=== PATIENT | male | born 1950 | race Caucasian/White ===

== ENCOUNTER 2017-05-05 10:24 | Inpatient (IN) | payer OTHER ==
[~2017-05-05] VITALS: Ht 177.8 cm; Wt 103.8 kg
[2017-05-05 11:27] LABS: BLOOD UREA NITROGEN 33 mg/dL (7-18)
[2017-05-05 11:33] LABS: ASPARTATE AMINO TRANSFERASE 61 U/L (15-37)
[2017-05-05 11:36] LABS: IS PT STATUS REG ER OR PRE ER? YES
[2017-05-05] MEDS ORDERED: ASPIRIN 81 MG TABLET CHEW ONE (11:38)
[2017-05-05] MEDS ORDERED: HEPARIN 5,000 UNITS/ML, 1ML IV ONE (12:00)
[2017-05-05] MEDS ORDERED: HEPARIN 25,000 UNITS/500ML PMX 500 ML ONE (12:10)
[2017-05-05] MEDS ORDERED: HEPARIN 5,000 UNITS/ML, 1ML ONE (12:10)
[2017-05-05] MEDS: HEPARIN 25,000 UNITS/500ML PMX 500 ML IV PRN (12:25)
[2017-05-05] MEDS ORDERED: ASPIRIN 325 MG TABLET EC PO ONE (12:30)
[2017-05-05] MEDS: METOPROLOL TARTRATE 25 MG TABLET PO SCH ×2 (12:30→16:23)
[2017-05-05] MEDS ORDERED: POTASSIUM CHLORIDE 20 MEQ TAB.ER.PRT PO ONE (12:30)
[2017-05-05] MEDS ORDERED: AMLO10TA2 PO (12:35)
[2017-05-05] MEDS ORDERED: LOSA1TAB17 PO (12:35)
[2017-05-05] MEDS ORDERED: morphine SULFATE 10 MG/ML, 1ML IVPush PRN (13:00)
[2017-05-05] MEDS ORDERED: TEMPLATE NON-FORMULARY MED. (Amlodipine Besylate (Amlodipine Besylate**) 10 MG) PO SCH (13:00)
[2017-05-05] MEDS ORDERED: ZOLPIDEM 5MG TABLET PO PRN (13:00)
[2017-05-05] MEDS ORDERED: LOSARTAN 50MG TABLET PO SCH (13:00)
[2017-05-05] MEDS ORDERED: NITROGLYCERIN 0.4 MG BOTTLE (25 TABS) SL PRN (13:00)
[2017-05-05] MEDS ORDERED: ONDANSETRON 2MG/ML, 2ML IVPush PRN (13:00)
[2017-05-05] MEDS ORDERED: ACETAMINOPHEN 325 MG TABLET PO PRN (13:00)
[2017-05-05] MEDS ORDERED: TEMPLATE NON-FORMULARY MED. (Losartan/Hydrochlorothiazide** (Losartan-Hctz 100-25 Mg Tab PO SCH (13:00)
[2017-05-05] MEDS ORDERED: METOPROLOL TARTRATE 50 MG TABLET ONE (16:21)
[2017-05-05 17:00] VITALS: BP 117/74
[2017-05-05 17:52] LABS: IS PT STATUS REG ER OR PRE ER? NO
[2017-05-05] MEDS: HEPARIN 5,000 UNITS/ML, 1ML IV PRN ×2 (19:47→19:49)
[2017-05-05 19:56] VITALS: BP 115/76
[2017-05-05] MEDS: SODIUM CHLORIDE FLUSH 10ML SYR IVF SCH (20:47)
[2017-05-05] MEDS ORDERED: ATORVASTATIN 80 MG TABLET PO SCH (21:00)
[2017-05-05 23:42] LABS: IS PT STATUS REG ER OR PRE ER? NO
[2017-05-06 01:42] VITALS: BP 107/70
[2017-05-06] MEDS: HEPARIN 5,000 UNITS/ML, 1ML IV PRN (03:11)
[2017-05-06] MEDS: METOPROLOL TARTRATE 25 MG TABLET PO SCH ×2 (06:34→18:24)
[2017-05-06] MEDS: ASPIRIN 81 MG TABLET EC PO SCH (06:34)
[2017-05-06] MEDS ORDERED: SODIUM CHLORIDE 0.9% 1,000 ML IV SCH (07:00)
[2017-05-06] MEDS: SODIUM CHLORIDE FLUSH 10ML SYR IVF SCH ×2 (07:00→19:44)
[2017-05-06 07:22] VITALS: BP 107/68
[2017-05-06] MEDS: HEPARIN 25,000 UNITS/500ML PMX 500 ML IV PRN (07:26)
[2017-05-06] MEDS ORDERED: TICAGRELOR 90 MG TABLET ONE (10:46)
[2017-05-06] MEDS ORDERED: NITROGLYCERIN 5 MG/ML, 10ML ONE (10:46)
[2017-05-06] MEDS ORDERED: LIDOCAINE 2%, 20ML ONE (10:46)
[2017-05-06] MEDS ORDERED: BIVALIRUDIN 250 MG ONE (10:46)
[2017-05-06] MEDS ORDERED: MIDAZOLAM 1 MG/ML, 5ML ONE (10:46)
[2017-05-06] MEDS ORDERED: FENTANYL PF 100 MCG/2ML ONE (10:46)
[2017-05-06] MEDS ORDERED: CLOPIDOGREL 300 MG TABLET PO ONE (12:00)
[2017-05-06] MEDS: SODIUM CHLORIDE 0.9% 500 ML IV SCH (12:00)
[2017-05-06 13:23] VITALS: BP 116/73
[2017-05-06] MEDS: ATORVASTATIN 40 MG TABLET PO SCH (19:44)
[2017-05-06 19:49] VITALS: BP 113/74
[2017-05-07 02:01] VITALS: BP 110/70
[2017-05-07 04:25] VITALS: BP 99/63
[2017-05-07] MEDS: METOPROLOL TARTRATE 25 MG TABLET PO SCH (04:46)
[2017-05-07 05:54] LABS: BLOOD UREA NITROGEN 16 mg/dL (7-18); TOTAL IRON BINDING CAPACITY 236 mcg/dL (250-450)
[2017-05-07] MEDS: ASPIRIN 81 MG TABLET EC PO SCH (06:25)
[2017-05-07 07:00] VITALS: BP 119/73
[2017-05-07] MEDS: LOSARTAN 50MG TABLET PO SCH (09:16)
[2017-05-07] MEDS: SODIUM CHLORIDE FLUSH 10ML SYR IVF SCH ×2 (09:17→20:16)
[2017-05-07] MEDS: CLOPIDOGREL 75 MG TABLET PO SCH (10:51)
[2017-05-07 13:05] VITALS: BP 114/77
[2017-05-07 20:11] VITALS: BP 142/79
[2017-05-07] MEDS: ATORVASTATIN 40 MG TABLET PO SCH (20:16)
[2017-05-08 04:32] VITALS: BP 124/76
[2017-05-08] MEDS: ASPIRIN 81 MG TABLET EC PO SCH (04:34)
[2017-05-08 06:59] VITALS: BP 122/77
[2017-05-08] MEDS: CLOPIDOGREL 75 MG TABLET PO SCH (08:37)
[2017-05-08] MEDS: LOSARTAN 50MG TABLET PO SCH (08:37)
[2017-05-08] MEDS: SODIUM CHLORIDE FLUSH 10ML SYR IVF SCH (08:38)
[2017-05-08] MEDS ORDERED: ATORVASTATIN 40 MG TABLET PO SCH ×2 (09:29→09:30)
[2017-05-08] MEDS ORDERED: ATOR40TA78 PO (09:30)
[2017-05-08] MEDS ORDERED: LOSA50TA2 PO (09:30)
[2017-05-08] MEDS ORDERED: ASPI-621 PO (09:30)
[2017-05-08] MEDS ORDERED: NITR0.4T SL (09:30)
[2017-05-08] MEDS ORDERED: CLOP75TA PO (09:30)
== END 2017-05-08 12:00 | disposition home or self-care (01) | DRG 280 ==
LOC: ED 11:40 → EDIP 11:58 → SUATTDRO 12:18 → 5SO 13:36 → DCLOUNGE 05-08 11:40
PROC: 4A023N7 Measurement of Cardiac Sampling and Pressure, Left Heart, Percutaneous Approach (ICD-10-PCS; principal; 2017-05-06)
PROC: B2151ZZ Fluoroscopy of Left Heart using Low Osmolar Contrast (ICD-10-PCS; 2017-05-06)
PROC: B2111ZZ Fluoroscopy of Multiple Coronary Arteries using Low Osmolar Contrast (ICD-10-PCS; 2017-05-06)
DX: I21.4 Non-ST elevation (NSTEMI) myocardial infarction (principal); I50.41 Acute combined systolic (congestive) and diastolic (congestive) heart failure; I42.9 Cardiomyopathy, unspecified; I11.0 Hypertensive heart disease with heart failure; D64.9 Anemia, unspecified; D50.9 Iron deficiency anemia, unspecified; D69.6 Thrombocytopenia, unspecified; E78.5 Hyperlipidemia, unspecified; E87.6 Hypokalemia; Z79.82 Long term (current) use of aspirin; Z79.02 Long term (current) use of antithrombotics/antiplatelets
CPT/HCPCS: 36415; 71010; 80048; 80053; 80061; 82728; 83540; 83550; 83880; 84484; 85025; 85520; 93005; 93458; 96374; 99156; C1769; C1894; C8929; J0583; J1644; J2250; J2405; J3010; J3490; J7030; J7040; Q9967

== ENCOUNTER 2017-06-12 09:19 | Observation (INO) | payer OTHER ==
[~2017-06-12] VITALS: Ht 177.8 cm; Wt 105.4 kg
[~2017-06-12 09:19] MED LIST: AMLO10TA2 PO; ASPI-621 PO; ATOR40TA78 PO; CLOP75TA PO; LOSA1TAB17 PO; LOSA50TA2 PO; NITR0.4T SL
[2017-06-12] MEDS ORDERED: CEFAZOLIN PMX 1GM/50ML 50 ML IVPB ONE (10:00)
[2017-06-12 10:01] VITALS: BP 143/88
[2017-06-12] MEDS ORDERED: LOSA50TA6 PO (10:29)
[2017-06-12] MEDS ORDERED: ASPI-496 PO (10:29)
[2017-06-12] MEDS ORDERED: LOSA1TAB16 PO (10:29)
[2017-06-12] MEDS ORDERED: NITR0.3T5 SL (10:29)
[2017-06-12] MEDS ORDERED: CLOP75TA PO (10:29)
[2017-06-12] MEDS ORDERED: MIDAZOLAM 1 MG/ML, 5ML ONE (11:20)
[2017-06-12] MEDS ORDERED: FENTANYL PF 100 MCG/2ML ONE (11:20)
[2017-06-12] MEDS ORDERED: PROPOFOL 10 MG/ML, 20ML ONE (11:22)
[2017-06-12] MEDS ORDERED: ONDANSETRON 2MG/ML, 2ML ONE (11:22)
[2017-06-12] MEDS ORDERED: DEXAMETHASONE 4 MG/ML, 1ML ONE (11:22)
[2017-06-12] MEDS ORDERED: CEFAZOLIN 1,000 MG ONE ×2 (11:22→11:36)
[2017-06-12] MEDS ORDERED: LIDOCAINE 2%, 20ML ONE (11:36)
[2017-06-12] MEDS ORDERED: PROMETHAZINE 25 MG/ML, 1ML IV PRN (12:30)
[2017-06-12] MEDS ORDERED: ONDANSETRON 2MG/ML, 2ML IVPush PRN (12:30)
[2017-06-12] MEDS ORDERED: MIDAZOLAM 1 MG/ML, 2ML IV PRN (12:30)
[2017-06-12] MEDS ORDERED: HYDROmorphone 1 MG/ML, 1ML IV PRN (12:30)
[2017-06-12] MEDS ORDERED: ZOLPIDEM 5MG TABLET PO PRN (12:30)
[2017-06-12] MEDS ORDERED: MEPERIDINE/PF 25MG/0.5ML IVPush PRN (12:30)
[2017-06-12] MEDS ORDERED: FENTANYL PF 100 MCG/2ML IV PRN (12:30)
[2017-06-12] MEDS ORDERED: HYDROcodone/APAP 5/325 TABLET PO PRN (12:30)
[2017-06-12] MEDS ORDERED: ACETAMINOPHEN 325 MG TABLET PO PRN (12:30)
[2017-06-12] MEDS ORDERED: LABETALOL 5MG/ML, 20ML IV PRN (12:30)
[2017-06-12] MEDS ORDERED: OXYcodone 5 MG/5 ML ORAL.SOL UDC PO PRN (12:30)
[2017-06-12] MEDS ORDERED: hydrALAzine 20 MG/ML, 1ML IV PRN (12:30)
[2017-06-12] MEDS ORDERED: ALBUTEROL SULFATE 2.5 MG/3 ML NPPB PRN (12:30)
[2017-06-12] MEDS ORDERED: NITROGLYCERIN 0.3 MG SL SCH (12:30)
[2017-06-12] MEDS ORDERED: ACETAMINOPHEN 650 MG/20.3 ML UDC ONE (13:24)
[2017-06-12] MEDS ORDERED: OXYcodone 5 MG/5 ML ORAL.SOL UDC ONE (13:25)
[2017-06-12] MEDS ORDERED: ACETAMINOPHEN 325 MG TABLET ONE (13:25)
[2017-06-12] MEDS: PLEASE ENTER HEIGHT AND WEIGHT MC SCH ×2 (14:20→14:54)
[2017-06-12] MEDS: SODIUM CHLORIDE 0.9% 1,000 ML IV SCH ×2 (14:20→20:00)
[2017-06-12] MEDS ORDERED: NITROGLYCERIN 0.4 MG BOTTLE (25 TABS) SL PRN (16:00)
[2017-06-12 19:14] VITALS: BP 131/80
[2017-06-12] MEDS: CEFAZOLIN PMX 1GM/50ML 50 ML IVPB SCH ×2 (20:18→21:00)
[2017-06-12] MEDS: SODIUM CHLORIDE FLUSH 10ML SYR IVF SCH (20:19)
[2017-06-13 01:30] VITALS: BP 119/73
[2017-06-13] MEDS: SODIUM CHLORIDE 0.9% 1,000 ML IV SCH ×2 (04:00→12:00)
[2017-06-13 07:57] VITALS: BP 127/80
[2017-06-13] MEDS: CEFAZOLIN PMX 1GM/50ML 50 ML IVPB SCH (08:44)
[2017-06-13] MEDS: SODIUM CHLORIDE FLUSH 10ML SYR IVF SCH (08:44)
[2017-06-13] MEDS ORDERED: ASPIRIN 81 MG TABLET EC PO SCH (09:00)
[2017-06-13] MEDS ORDERED: LOSARTAN 50MG TABLET PO SCH (09:00)
[2017-06-13] MEDS ORDERED: CLOPIDOGREL 75 MG TABLET PO SCH ×2 (09:00)
== END 2017-06-13 15:00 | disposition home or self-care (01) ==
LOC: CACL 09:19 → ORIP 12:14 → 5SO 14:26 → DCLOUNGE 06-13 14:32
PROVIDERS: ADMIT Internal Medicine Cardiovascular Disease; ATTEND Internal Medicine Cardiovascular Disease
DX: I49.5 Sick sinus syndrome (principal); I42.9 Cardiomyopathy, unspecified; R00.1 Bradycardia, unspecified; I44.1 Atrioventricular block, second degree; I10 Essential (primary) hypertension
CPT/HCPCS: 33208; 71010; 96365; 96375; C1779; C1785; C1892; G0378; J0690; J1100; J2250; J2405; J2704; J3010; J3490